=== PATIENT | male | born 1950 | race Caucasian/White ===

== ENCOUNTER → 2020-08-07 08:55 | Outpatient (BNVA) | payer MEDICARE, SELFPAY | PROVIDERS: Visit Provider Surgery | DX: Z01.812 Encounter for preprocedural laboratory examination (principal); Z20.822 Contact with and (suspected) exposure to COVID-19 | CPT/HCPCS: 87635 ==

== ENCOUNTER 2020-08-10 06:19 | Day surgery (SDC) | payer MEDICARE, SELFPAY ==
[2020-08-08 07:19] VITALS: BMI 37.4
[2020-08-10 06:37] VITALS: BP 187/123; PULSE 79; RESP 18; TEMP 36.5; O2SAT 94
--- NOTE | 2020-08-10 06:44 | W.PM.OPSUD ---
Surgery/Procedure H&P Update DATE OF PROCEDURE: August 10, 2020 DATE H&P PERFORMED: 07/25/20 H&P UPDATE INFORMATION: No changes to prior documentation PREOP DIAGNOSIS: High risk screening colonoscopy, history of colon polyps. PLANNED PROCEDURE: Operation Date: 08/10/20 07:00 Proposed Procedures p Colonoscopy 91179 Z86.01(Not Applicable) - Dylan Larios MD
[2020-08-10] MEDS: sodium chloride 0.9% 1,000 ML 30 ML IV (06:53)
[2020-08-10 06:56] VITALS: BP 151/88
--- NOTE | 2020-08-10 07:00 | ANES.PREANE2 ---
Pre-Anesthetic Assessment Pre-Anesthetic Assessment: Height/Weight: Height 1.7 m Weight 108.409 kg Temp Pulse Resp BP Pulse Ox 97.7 F 79 18 151/88 94 08/10/20 06:37 08/10/20 06:37 08/10/20 06:37 08/10/20 06:56 08/10/20 06:37 Preop Diagnosis: High risk screening colonoscopy, history of colon polyps. Proposed Procedure: Operation Date: 08/10/20 07:00 Proposed Procedures p Colonoscopy 95160 Z86.01(Not Applicable) - Dylan Larios MD Was Beta Rajendra taken within 24 hours: N/A Was Clonidine taken within 24 hours: N/A Last intake: Intake Last Liquid Date 08/09/20 Last Liquid Time 20:00 Last Solid Date 08/08/20 Last Solid Time 18:00 Social: Social History: Tobacco Packs per day: quit Exam: Pre-Anes Outpt Exam: alert, oriented x 3, clear to auscultation bilaterally and regular rate & rhythm Airway: Submandibular: WNL Cervical ROM: WNL MP: 2 (full dao) Dentition: Chipped History/ROS: No significant history except as noted Pulmonary: Pulmonary: Sleep apnea CV/HEM: CV/HEM: HTN : : None reported Hepatic: Hepatic: None reported GI: GI: GERD Metabolic: Metabolic: DM Musc/skel: Musc/skel: None reported Neuropsych: Neuropsych: None reported Anesthetic Plan: ASA status: 2 Anesthesia: Anesthesia Evaluation and MAC Risk of > 500 ml blood loss (7ml/kg in children): No Meds/Allergies Current Medications: Current Medications Generic Name Dose Route Start Last Admin Trade Name Freq PRN Reason Stop Dose Admin Sodium Chloride 1,000 mls @ 30 ml s/hr 08/10/20 06:30 08/10/20 06:53 Sodium Chloride 0.9% IV 08/11/20 06:29 30 mls/hr .Q24H VIRGIL Administration Data Anesthesia Cardiac Studies: No Data to Display
[2020-08-10 07:37] VITALS: BP 145/86; PULSE 70; RESP 18; TEMP 36.9; O2SAT 92
[2020-08-10 07:47] VITALS: BP 126/86; PULSE 70; RESP 18; TEMP 36.8; O2SAT 93
--- NOTE | 2020-08-10 13:03 | ANE.PACU2 ---
Inpatient post-anesthesia follow up: Airway intact: Yes Vital signs: Temperature 98.2 F Pulse Rate 70 Respiratory Rate 18 Blood Pressure 126/86 Pulse Oximetry 93 Oxygen Delivery Me thod Room Air Oxygen Flow Rate Fraction of Inspir ed Oxygen Hydration adequate: Yes Nausea and vomiting: No Pain level: 1 Mental status: Baseline
== END 2020-08-10 07:58 | disposition home or self-care (01) ==
PROVIDERS: Visit Provider Surgery
PROC: 0DJD8ZZ Inspection of Lower Intestinal Tract, Via Natural or Artificial Opening Endoscopic (ICD-10-PCS; CPT 45378; principal; 2020-08-10 07:00)
DX: Z12.11 Encounter for screening for malignant neoplasm of colon (principal); Z86.010 Personal history of colon polyps; K64.8 Other hemorrhoids; G47.30 Sleep apnea, unspecified; I10 Essential (primary) hypertension; K21.9 Gastro-esophageal reflux disease without esophagitis; E11.9 Type 2 diabetes mellitus without complications; M19.90 Unspecified osteoarthritis, unspecified site; Z79.82 Long term (current) use of aspirin; Z87.11 Personal history of peptic ulcer disease
CPT/HCPCS: 96360; G0121; J2704; J7030

== ENCOUNTER → 2021-10-31 07:52 | Outpatient (BNVA) | payer MEDICARE, SELFPAY | PROVIDERS: Visit Provider Otolaryngology | DX: J34.2 Deviated nasal septum (principal); J34.89 Other specified disorders of nose and nasal sinuses; J31.0 Chronic rhinitis; R09.81 Nasal congestion; Z98.890 Other specified postprocedural states; Z87.09 Personal history of other diseases of the respiratory system; Z87.891 Personal history of nicotine dependence | CPT/HCPCS: 99204 ==

== ENCOUNTER → 2021-12-31 08:32 | Outpatient (BNVA) | payer MEDICARE, SELFPAY | PROVIDERS: PCP Nurse Practitioner Family; Visit Provider Otolaryngology | DX: R09.81 Nasal congestion (principal); J31.0 Chronic rhinitis; J34.2 Deviated nasal septum; J34.89 Other specified disorders of nose and nasal sinuses; Z87.891 Personal history of nicotine dependence | CPT/HCPCS: 99212; 99213 ==

== ENCOUNTER → 2022-09-30 10:13 | Outpatient (BNVA) | payer MEDICARE, SELFPAY | PROVIDERS: PCP Nurse Practitioner Family; Visit Provider Student in an Organized Health Care Education/Training Program | DX: M25.642 Stiffness of left hand, not elsewhere classified (principal); M72.0 Palmar fascial fibromatosis [Dupuytren] | CPT/HCPCS: 73130; 99204 ==

== ENCOUNTER 2024-02-20 14:30 | Outpatient (CLI) | payer MEDICARE, SELFPAY ==
--- NOTE | 2024-02-20 14:31 | CT_ITS ---
WS: [id number] LDCT LUNG CANCER SCREENING HISTORY: HX OF TOBACCO USE TECHNIQUE: Axial imaging performed from the apices to 1 cm below the costophrenic angles. Coronal and sagittal reformats are submitted with axial MIP series. All CT scans at [facility] use at least one of these dose optimization techniques: automated exposure control; mA and/or kV adjustment per patient size (includes targeted exams where dose is matched to clinical indication); or iterativ e reconstruction. DLP: 140.11 mGy.cm DIvol: Mean CTDIvol: 3.10 (mGy) COMPARISON: None available. Diagnostic quality: Satisfactory Lungs: No pulmonary mass or nodule. No endobronchial lesions. No pneumonia. Heart: Normal size heart with no pericardial effusion.. Other findings: No adenopathy. Minimal atherosclerosis thoracic aorta. Normal size pulmonary artery. Moderate thoracic spondylosis. Disc bases are narrowed. Schmorl's nodes in the thoracic spine. CT/CT lung screening [id number] IMPRESSION: LUNG-RADS: 1-Negative FOLLOW UP: 12 Month: Continue annual screening with LDCT OTHER FINDINGS (S MODIFIER): None.
== END 2024-02-20 14:31 | disposition home or self-care (01) ==
PROVIDERS: PCP Nurse Practitioner Family; Visit Provider Nurse Practitioner Family
DX: Z12.2 Encounter for screening for malignant neoplasm of respiratory organs (principal); Z87.891 Personal history of nicotine dependence; M47.814 Spondylosis without myelopathy or radiculopathy, thoracic region; M51.44 Schmorl's nodes, thoracic region
CPT/HCPCS: 71271

== ENCOUNTER 2024-03-25 10:31 | Outpatient (CLI) | payer MEDICARE, SELFPAY ==
--- NOTE | 2024-03-25 10:37 | XR_ITS ---
WS: [id number] Lumbar spine, 3 views, 03/25/2024 Clinical Data: LOW BACK PAIN Comparison: None. Findings: No compression fractures or subluxation is seen. There is degenerative disc narrowing at L4-L5. The transverse processes and SI joints are normal. XR/XR lumbar spine 2-3V* [id number] Impression: Disc narrowing L4-L5.
== END 2024-03-25 10:32 | disposition home or self-care (01) ==
LOC: RAD 10:33
PROVIDERS: PCP Nurse Practitioner Family; Visit Provider Nurse Practitioner Family
DX: M51.360 Other intervertebral disc degeneration, lumbar region with discogenic back pain only (principal)
CPT/HCPCS: 72100